=== PATIENT | female | born 2000 | race Caucasian/White ===

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

== ENCOUNTER 2023-07-14 19:41 | Emergency (ER) | payer OTHER ==
[~2023-07-14] VITALS: Ht 162.6 cm; Wt 68.2 kg
[~2023-07-14 19:41] MED LIST changes: +NORCO 325 MG-51 TAB PO
[2023-07-14 21:00] VITALS: BP 120/73; PULSE 91; TEMP 97.7
== END 2023-07-14 21:00 | disposition home or self-care (01) ==
LOC: COL.ER 19:41
DX: S61.412A Laceration without foreign body of left hand, initial encounter (principal); Z23 Encounter for immunization; W26.8XXA Contact with other sharp object(s), not elsewhere classified, initial encounter; Y92.59 Other trade areas as the place of occurrence of the external cause; Y99.0 Civilian activity done for income or pay